=== PATIENT | female | born 1980 | race African-American/Black ===

== ENCOUNTER 2018-06-06 12:02 | Emergency (ER) | payer OTHER ==
[~2018-06-06] VITALS: Ht 170.2 cm; Wt 99.8 kg
[~2018-06-06 12:02] MED LIST: FELODIPINE ER2.5 MG PO
[2018-06-06 12:22] VITALS: BP 142/94
[2018-06-06] MEDS ORDERED: FLONASE 0.05%50 MCG NASAL (12:28)
== END 2018-06-06 12:48 | disposition home or self-care (01) ==
LOC: ER 12:02
DX: J34.89 Other specified disorders of nose and nasal sinuses (principal); I10 Essential (primary) hypertension; G43.909 Migraine, unspecified, not intractable, without status migrainosus